=== PATIENT | female | born 1960 | race Caucasian/White ===

== ENCOUNTER → 2016-09-27 | Outpatient (CLI) | payer BC | LOC: MC.RAD 07:00 | DX: Z12.31 Encounter for screening mammogram for malignant neoplasm of breast (principal); R92.1 Mammographic calcification found on diagnostic imaging of breast ==

== ENCOUNTER → 2016-10-19 | Outpatient (CLI) | payer BC | LOC: MC.RAD 06:58 | DX: R92.0 Mammographic microcalcification found on diagnostic imaging of breast (principal) ==

== ENCOUNTER → 2016-11-02 | Outpatient (CLI) | payer BC | LOC: MC.RAD 06:56 | DX: D24.2 Benign neoplasm of left breast (principal) ==

== ENCOUNTER → 2017-11-13 | Outpatient (CLI) | payer BC | LOC: MC.RAD 07:13 | DX: Z12.31 Encounter for screening mammogram for malignant neoplasm of breast (principal) ==

== ENCOUNTER → 2019-03-29 | Outpatient (CLI) | payer BC | LOC: MC.RAD 13:23 | DX: Z12.31 Encounter for screening mammogram for malignant neoplasm of breast (principal) ==

== ENCOUNTER → 2020-03-30 | Outpatient (CLI) | payer BC | LOC: MC.RAD 07:00 | DX: Z12.31 Encounter for screening mammogram for malignant neoplasm of breast (principal) ==

== ENCOUNTER → 2021-04-15 | Outpatient (CLI) | payer BC | LOC: MC.RAD 06:56 | DX: Z12.31 Encounter for screening mammogram for malignant neoplasm of breast (principal) ==

== ENCOUNTER → 2022-04-28 | Outpatient (CLI) | payer BC | LOC: MC.RAD 07:00 | DX: Z12.31 Encounter for screening mammogram for malignant neoplasm of breast (principal) ==